=== PATIENT | female | born 1950 | race Caucasian/White ===

== ENCOUNTER 2018-10-21 05:54 | Day surgery (SDC) | payer MEDICARE ==
[~2018-10-21] VITALS: Ht 154.9 cm; Wt 64.0 kg
[~2018-10-21 05:54] MED LIST: ASPIRIN81 MG PO; AUG BETAMET0.05 % EX; AVELOX400 MG OR; CALCIUM CHEWS PO; CIPROFLOXACN500 MG PO; CRANBERR3 PO; ESTRACE VAG0.1 MG/GM VA; LORTAB 7.5 OR; VITAMIN C500 M1 PO; ZOCOR20 M1 PO; ZYRTEC10 M2 PO
[2018-10-21 07:55] VITALS: BP 134/77
== END 2018-10-21 08:04 | disposition home or self-care (01) ==
LOC: ENDO 05:54
PROVIDERS: ATTEND Surgery
PROC: 0DJD8ZZ Inspection of Lower Intestinal Tract, Via Natural or Artificial Opening Endoscopic (ICD-10-PCS; principal; 2018-10-21)
DX: Z12.11 Encounter for screening for malignant neoplasm of colon (principal); K57.30 Diverticulosis of large intestine without perforation or abscess without bleeding
CPT/HCPCS: G0121

== ENCOUNTER 2022-11-10 12:30 | Emergency (ER) | payer MEDICARE ==
[~2022-11-10] VITALS: Ht 154.9 cm; Wt 66.0 kg
[2022-11-10 13:10] VITALS: BP 180/83
[2022-11-10 13:30] LABS: BASO% 0.4 % (0-3); EOS% 1.9 % (0-8); HEMATOCRIT 44.1 % (37.0-47.0); HEMOGLOBIN 14.8 g/dl (12.0-16.0); IMMATURE GRANULOCYTES 0.1 % (0.0-5.0); MEAN CELL VOLUME 89.6 fL CALC (80.0-100.0); MEAN CORPUSCULAR HGB 30.1 pG CALC (26.0-32.0); MEAN CORPUSCULAR HGB CONC 33.6 g/dL CAL (32.0-36.0); MONO% 5.5 % (2-13); NEUT# 6.9 thou/uL (2.00-7.15); NEUT% 72.1 % (42-76); RED BLOOD COUNT 4.92 mill/uL (4.20-5.60); RED CELL DISTRI WIDTH 13.1 % (11.5-15.5)
[2022-11-10 13:48] LABS: ALBUMIN 4.6 g/dL (3.2-5.0); ALKALINE PHOSPHATASE 100 u/l (38-126); ANION GAP 11 (6-22 (CALC)); BUN 19 mg/dL (8-23); BUN/CREATININE RATIO 19 (12-20 (CALC)); CARBON DIOXIDE 25 mmol/l (22-30); CHLORIDE 107 mmol/l (95-108); GFR FOR AFR.AMER. > 60 ML/MIN (>=60 (CALC)); GFR OTHER RACES 55 ML/MIN (>=60 (CALC)); LIPASE 267 u/l (23-300); POTASSIUM 3.8 mmol/l (3.5-5.1); SGOT/AST 27 u/l (9-36); SODIUM 139 mmol/l (137-146); TOTAL PROTEIN 7.8 g/dL (6.3-8.2)
[2022-11-10 14:01] VITALS: BP 195/100
[2022-11-10 14:01] LABS: BILIRUBIN, TOTAL 0.3 mg/dL (0.02-1.3)
[2022-11-10 14:19] LABS: URINE BILIRUBIN - DIPSTICK NEGATIVE (NEGATIVE); URINE BLOOD DIPSTICK TRACE-INTACT (NEGATIVE); URINE COLOR YELLOW; URINE GLUCOSE - DIPSTICK NEGATIVE (NEGATIVE); URINE KETONE TRACE mg/dL (NEGATIVE); URINE LEUK ESTERASE NEGATIVE (NEGATIVE); URINE PH 5.5 (4.5-8.0); URINE PROTEIN - DIPSTICK NEGATIVE (NEG-TRACE); URINE SPECIFIC GRAVITY 1.025; URINE UROBILINOGEN - DIPSTICK 0.2 E.U./dL (0.2)
[2022-11-10 14:24] LABS: URINE NITRITE - DIPSTICK NEGATIVE (Negative)
[2022-11-10 15:40] VITALS: BP 186/93
[2022-11-10 16:00] VITALS: BP 145/77
[2022-11-10] MEDS ORDERED: DULCOLAX10 MG RE (16:02)
[2022-11-10] MEDS ORDERED: PROTONIX40 M2 PO (16:03)
[2022-11-10 16:19] VITALS: BP 145/77
== END 2022-11-10 16:23 | disposition home or self-care (01) ==
LOC: ED 12:30
PROVIDERS: Family Medicine
DX: R10.13 Epigastric pain (principal); R10.11 Right upper quadrant pain; R10.12 Left upper quadrant pain; I10 Essential (primary) hypertension

== ENCOUNTER 2023-01-06 08:13 | Day surgery (SDC) | payer MEDICARE ==
[~2023-01-06] VITALS: Ht 154.9 cm; Wt 66.2 kg
[~2023-01-06 08:13] MED LIST changes: +CITRACAL CALCIUM PO; +COZAAR25 MG PO; +DULCOLAX10 MG RE; +FIBER 7 PO; +MYRBETRIQ50 MG PO; +PROTONIX40 M2 PO; +[UNRECOGNIZED DRUG - OTHER] PO
[2023-01-06 11:11] VITALS: BP 155/85
== END 2023-01-06 10:53 | disposition home or self-care (01) ==
LOC: ENDO 08:13 → ORM 10:35 → ENDO 10:53 → ORM 13:30
PROVIDERS: ATTEND Internal Medicine Gastroenterology
PROC: 0DB98ZX Excision of Duodenum, Via Natural or Artificial Opening Endoscopic, Diagnostic (ICD-10-PCS; principal; 2023-01-06)
PROC: 0DB78ZX Excision of Stomach, Pylorus, Via Natural or Artificial Opening Endoscopic, Diagnostic (ICD-10-PCS; 2023-01-06)
PROC: 0DB48ZX Excision of Esophagogastric Junction, Via Natural or Artificial Opening Endoscopic, Diagnostic (ICD-10-PCS; 2023-01-06)
DX: K21.00 Gastro-esophageal reflux disease with esophagitis, without bleeding (principal); K25.9 Gastric ulcer, unspecified as acute or chronic, without hemorrhage or perforation; K29.50 Unspecified chronic gastritis without bleeding; K29.80 Duodenitis without bleeding; K59.09 Other constipation; E78.5 Hyperlipidemia, unspecified; Z80.0 Family history of malignant neoplasm of digestive organs

== ENCOUNTER 2023-01-08 15:52 | Emergency (ER) | payer MEDICARE ==
[2023-01-08] VITALS (7 sets, daily range): BP systolic 143–164; BP diastolic 79–85
[~2023-01-08] VITALS: Ht 154.9 cm; Wt 72.7 kg
== END 2023-01-08 17:33 | disposition home or self-care (01) ==
LOC: ED 15:52
DX: K46.9 Unspecified abdominal hernia without obstruction or gangrene (principal); I10 Essential (primary) hypertension; K27.9 Peptic ulcer, site unspecified, unspecified as acute or chronic, without hemorrhage or perforation